=== PATIENT | female | born 1945 | race Hispanic/Latino ===

== ENCOUNTER 2017-08-03 11:29 | Day surgery (SDC) | payer OTHER ==
[~2017-08-03 11:29] MED LIST: IOPIDINE ONE; MYDRIACYL ONE; NEOFRIN ONE
[2017-08-03] MEDS ORDERED: MYDRIACYL OS ONE (12:10)
[2017-08-03] MEDS ORDERED: IOPIDINE OS ONE (12:10)
[2017-08-03] MEDS ORDERED: AK-Dilate OS ONE (12:10)
[2017-08-03] MEDS ORDERED: AK-Dilate ONE ×2 (12:12)
[2017-08-03 12:14] VITALS: BP 140/76
== END 2017-08-03 13:15 | disposition home or self-care (01) ==
LOC: OR 11:29
PROVIDERS: ATTEND Specialist
DX: H26.492 Other secondary cataract, left eye (principal); M19.90 Unspecified osteoarthritis, unspecified site; I10 Essential (primary) hypertension; Z98.890 Other specified postprocedural states

== ENCOUNTER 2017-08-10 10:54 | Day surgery (SDC) | payer OTHER ==
[2017-08-10] MEDS ORDERED: MYDRIACYL OD ONE (11:40)
[2017-08-10] MEDS ORDERED: IOPIDINE OD ONE (11:40)
[2017-08-10] MEDS ORDERED: AK-Dilate OD ONE (11:40)
[2017-08-10] MEDS ORDERED: AK-Dilate ONE (14:46)
[2017-08-10] MEDS ORDERED: IOPIDINE ONE (14:46)
[2017-08-10] MEDS ORDERED: MYDRIACYL ONE (14:46)
[2017-08-10 15:01] VITALS: BP 144/72
== END 2017-08-10 12:36 | disposition home or self-care (01) ==
LOC: OR 10:54
PROVIDERS: ATTEND Specialist
DX: H26.491 Other secondary cataract, right eye (principal); I10 Essential (primary) hypertension; M19.90 Unspecified osteoarthritis, unspecified site; Z98.890 Other specified postprocedural states